=== PATIENT | female | born 1965 | race Caucasian/White ===

== ENCOUNTER 2022-01-19 06:01 | Day surgery (SDC) | payer BC, SELFPAY ==
[2022-01-13 15:08] VITALS: BMI 23.2
--- NOTE | 2022-01-15 12:39 | MHC.SHP ---
Pre-Procedural Eval Section A Date of Service: 01/15/22 The patient is an INPATIENT: No Changes since office visit: No Cold of Flu in the past 2 weeks, No New Medical Problems, No Changes in Medication and No Patient answered all questions The History & Physical has been completed within 30 days and I have reviewed it.: Yes Section B Chief Complaint: cataract right eye Plan Diagnosis/Plan: Unchanged I have reviewed the history and physical and performed a pertinent physical examination on my patient. No changes have occurred unless specified.
--- NOTE | 2022-01-16 08:51 | HO.ANESPROP2 ---
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 [facility] Past Medical History Medical History (Updated 01/13/22 @ 15:27 by Brenda Saldaña, RN) Anxiety Cataract Deaf HTN (hypertension) Hypotension Hypothyroidism Surgical History Surgical History (Updated 01/13/22 @ 14:14 by Brenda Saldaña, RN) Hx of cholecystectomy Hx of hernia repair Social History Social History Are you a primary critical care nurse specialist to a significant other at home: No Do you presently have visiting nurse or other home services: No Patient Tobacco Use Status: Never used Tobacco Use of substances other than those prescribed or required for medical reasons: No Have you been hit, kicked, punched, or otherwise hurt by someone within the past year? If so, by whom?: No Are you DNR?: No Advance Directives: No (will bring DOS) Advance Directives Information Provided: No Advance Directives on File: No Recently lost weight without trying: No Meds Allergies Allergy/AdvReac Type Severity Reaction Status Date / Time interferon beta-1b Allergy Fatigued Verified 01/16/22 08:54 [From Betaseron] lamotrigine [From Lamictal] Allergy suicidal Verified 01/16/22 08:54 naproxen [From Naprosyn] Allergy Gastrointestinal Verified 01/16/22 08:54 Upset Home Medications Medication Instructions Recorded Confirmed Last Taken Type albuterol sulfate 90 mcg/actuation 2 puff PO QID PRN 01/13/22 01/13/22 Unknown History aerosol inhaler hydrochlorothiazide 25 mg tablet 1 tab PO DAILY 01/13/22 01/13/22 Unknown History levothyroxine 75 mcg tablet 1 tab PO DAILY 01/13/22 01/13/22 01/19/22 History olmesartan 20 mg tablet 1 tab PO DAILY 01/13/22 01/13/22 Unknown History Exam Exam Date and Time: January 16, 2022 0851 Height,Weight and Vital Signs: Height 5 ft 2 in Weight 57.606 kg Assessment and Plan Assessment Anesthesia Assessment: Chart Reviewed Documented by User: Pancho Stone MD 01/19/22 07:19 [facility] Past Medical History Medical History (Updated 01/13/22 @ 15:27 by Brenda Saldaña, TAMIKA) Anxiety Cataract Deaf HTN (hypertension) Hypotension Hypothyroidism Family History Family history of problems with anesthesia: No Surgical History Surgical History (Updated 01/13/22 @ 14:14 by Brenda Saldaña, TAMIKA) Hx of cholecystectomy Hx of hernia repair History of Problems with Anesthesia: No Social History Social History Are you a primary critical care nurse specialist to a significant other at home: No Do you presently have visiting nurse or other home services: No Patient Tobacco Use Status: Never used Tobacco Use of substances other than those prescribed or required for medical reasons: No Have you been hit, kicked, punched, or otherwise hurt by someone within the past year? If so, by whom?: No Are you DNR?: No Advance Directives: No (will bring DOS) Advance Directives Information Provided: No Advance Directives on File: No Recently lost weight without trying: No Meds Allergies Allergy/AdvReac Type Severity Reaction Status Date / Time interferon beta-1b Allergy Fatigued Verified 01/16/22 08:54 [From Betaseron] lamotrigine [From Lamictal] Allergy suicidal Verified 01/16/22 08:54 naproxen [From Naprosyn] Allergy Gastrointestinal Verified 01/16/22 08:54 Upset Home Medications Medication Instructions Recorded Confirmed Last Taken Type albuterol sulfate 90 mcg/actuation 2 puff PO QID PRN 01/13/22 01/13/22 Unknown History aerosol inhaler hydrochlorothiazide 25 mg tablet 1 tab PO DAILY 01/13/22 01/13/22 Unknown History levothyroxine 75 mcg tablet 1 tab PO DAILY 01/13/22 01/13/22 01/19/22 History olmesartan 20 mg tablet 1 tab PO DAILY 01/13/22 01/13/22 Unknown History Exam Airway Mallampati Class: II TM Dist: >3cm Neck ROM: Full Loose/Missing/Broken Teeth: No Heart: rrr+s1s2 Lungs: cta b/l Assessment and Plan Assessment Anesthesia Assessment: Anesthesia Plan Discussed Final Anesthetic Review Family History of Problems with Anesthesia: No History of Problems with Anesthesia: No NPO: Yes ASA Class: III Final Preanesthetic Review: No Changes in Pt Med Stat, Meds/Allgs Chart Reviewed, Consent Obtained/Reviewed and Anes Risks/Benef Reviewed Patient Risk: Intermediate Procedure Risk: Low Assessment/Block/Sedation in SS: Assess/Block/Sedation-SS Anesthetic Plan Anesthetic Plan: MAC: and Agree w/ Assess. and Plan Disposition: Standard PACU
[2022-01-19 06:59] VITALS: BP 151/52; PULSE 53; RESP 16; TEMP 36.8; O2SAT 99
[2022-01-19] MEDS: Tetracaine HCl/PF 0.5% Oph Sol 4 ML DROPS 1 DROP EYE-RIGHT (07:15)
[2022-01-19] MEDS: Tropicamide 1 % Ophth Sol 3 ML BTL 1 DROP EYE-RIGHT ×3 (07:16→07:20)
[2022-01-19] MEDS: Phenylephrine HCL 2.5% Oph SoL 2 ML BOTTLE 1 DROP EYE-RIGHT ×3 (07:17→07:23)
[2022-01-19] MEDS: Lactated Ringers 500 ML 50 ML IV (07:24)
--- NOTE | 2022-01-19 07:26 | PC.NURSE ---
DAY CARE HOME PROVIDER WAS SUPPOSED TO BE BOOKED BUT WASNT SO WE USED THE DAY CARE HOME PROVIDER WITH [employer]. THREE INTERPRETERS WERE USED. [employer] [id number]. WHILE DOING THE DROPS THE PATIENT REQUESTED THE [employer] INTEPRETER TO BE ON BY THE BEDSIDE. EUNICE DROPS WELL. TAPPING HER RIGHT SHOULDER.
--- NOTE | 2022-01-19 08:21 | P.PCNO_ITS ---
Ophthalmology Procedure Procedure Date of Service: 01/19/22 Ophthalmology Viscoelastic: Healon Duet Dual Pack Pro Ophthalmology Lenses: TECNIS ZXR00 (13.5) Procedure Notes: PREOPERATIVE DIAGNOSIS: Decreased visual acuity right eye secondary to cataract POSTOPERATIVE DIAGNOSIS: Same PROCEDURE: Right cataract extraction with multifocal intraocular lens insertion SURGEON: Davi Humphries M.D. ANESTHESIA: Topical/MAC ESTIMATED BLOOD LOSS: None COMPLICATIONS: None After obtaining informed consent, the patient was brought to the operating room suite and placed in the supine position. After adequate sedation per anesthesia, topical drops of Tetracaine were given to the right eye. The eye was then prepped and draped in the usual sterile fashion. The operating room microscope was then positioned over the operative eye and a lid speculum placed. A paracentesis was created. Viscoelastic was then instilled into the anterior chamber. A three plane incision was then created temporally, utilizing a 2.85 mm keratome. Capsulotomy forceps were then utilized to create a circular tear capsulotomy. Hydrodissection and hydrodelineation were carried out until adequate mobilization of the nucleus occurred. Phacoemulsification was then utilized to remove the dense central nu cleus followed by removal of the cortical material utilizing the automated aspiration irrigation unit. Viscoelastic was instilled into the posterior capsular bag followed by placement of a multifocal posterior chamber intraocular lens without difficulty. The residual Viscoelastic was then removed utilizing the automated IA machine. The wound was checked and found to be watertight. The patient tolerated the procedure well and the lid speculum was removed. Intracameral injection of Vigamox 0.1 mL followed by a subtenon injection of Kenalog-40 0.2 mL were administered. The patient will be seen in the a.m.
[2022-01-19 08:51] VITALS: PULSE 52; RESP 16; TEMP 36; O2SAT 100
== END 2022-01-19 09:00 | disposition home or self-care (01) ==
PROVIDERS: Visit Provider Ophthalmology
PROC: (CPT 66984; principal; 2022-01-19 08:40)
DX: H25.11 Age-related nuclear cataract, right eye (principal); H54.7 Unspecified visual loss; I10 Essential (primary) hypertension; G35 Multiple sclerosis; E03.9 Hypothyroidism, unspecified; H91.90 Unspecified hearing loss, unspecified ear; Z79.899 Other long term (current) drug therapy; Z88.8 Allergy status to other drugs, medicaments and biological substances
CPT/HCPCS: 66984; J2250; J3300; V2788

== ENCOUNTER 2022-01-26 10:37 | Day surgery (SDC) | payer BC, SELFPAY ==
[2022-01-13 15:23] VITALS: BMI 23.2
--- NOTE | 2022-01-23 10:13 | HO.ANESPROP2 ---
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* [facility] Past Medical History Medical History Anxiety Cataract Deaf HTN (hypertension) Hypotension Hypothyroidism Family History Family history of problems with anesthesia: No Surgical History Surgical History Hx of cholecystectomy Hx of hernia repair History of Problems with Anesthesia: No Social History Social History Are you a primary rehab care assistant to a significant other at home: No Do you presently have visiting nurse or other home services: No Patient Tobacco Use Status: Never used Tobacco Use of substances other than those prescribed or required for medical reasons: No Have you been hit, kicked, punched, or otherwise hurt by someone within the past year? If so, by whom?: No Are you DNR?: No Advance Directives: No Advance Directives Information Provided: No Advance Directives on File: No Meds Allergies Allergy/AdvReac Type Severity Reaction Status Date / Time interferon beta-1b Allergy Fatigued Verified 01/26/22 11:32 [From Betaseron] lamotrigine [From Lamictal] Allergy suicidal Verified 01/26/22 11:32 naproxen [From Naprosyn] Allergy Gastrointestinal Verified 01/26/22 11:32 Upset Home Medications Medication Instructions Recorded Confirmed Last Taken Type albuterol sulfate 90 mcg/actuation 2 puff PO QID PRN 01/13/22 01/13/22 Unknown History aerosol inhaler hydrochlorothiazide 25 mg tablet 1 tab PO DAILY 01/13/22 01/13/22 Unknown History levothyroxine 75 mcg tablet 1 tab PO DAILY 01/13/22 01/13/22 01/26/22 02:30 History olmesartan 20 mg tablet 1 tab PO DAILY 01/13/22 01/13/22 Unknown History Exam Exam Date and Time: January 23, 2022 1013 Height,Weight and Vital Signs: Height 5 ft 2 in Weight 57.606 kg Assessment and Plan Assessment Anesthesia Assessment: Chart Reviewed Final Anesthetic Review Family History of Problems with Anesthesia: No History of Problems with Anesthesia: No Documented by User: Pancho Stone MD 01/26/22 12:01 [facility] Past Medical History Medical History Anxiety Cataract Deaf HTN (hypertension) Hypotension Hypothyroidism Surgical History Surgical History Hx of cholecystectomy Hx of hernia repair Social History Social History Are you a primary rehab care assistant to a significant other at home: No Do you presently have visiting nurse or other home services: No Patient Tobacco Use Status: Never used Tobacco Use of substances other than those prescribed or required for medical reasons: No Have you been hit, kicked, punched, or otherwise hurt by someone within the past year? If so, by whom?: No Are you DNR?: No Advance Directives: No Advance Directives Information Provided: No Advance Directives on File: No Meds Allergies Allergy/AdvReac Type Severity Reaction Status Date / Time interferon beta-1b Allergy Fatigued Verified 01/26/22 11:32 [From Betaseron] lamotrigine [From Lamictal] Allergy suicidal Verified 01/26/22 11:32 naproxen [From Naprosyn] Allergy Gastrointestinal Verified 01/26/22 11:32 Upset Home Medications Medication Instructions Recorded Confirmed Last Taken Type albuterol sulfate 90 mcg/actuation 2 puff PO QID PRN 01/13/22 01/13/22 Unknown History aerosol inhaler hydrochlorothiazide 25 mg tablet 1 tab PO DAILY 01/13/22 01/13/22 Unknown History levothyroxine 75 mcg tablet 1 tab PO DAILY 01/13/22 01/13/22 01/26/22 02:30 History olmesartan 20 mg tablet 1 tab PO DAILY 01/13/22 01/13/22 Unknown History Exam Airway Mallampati Class: II TM Dist: >3cm Neck ROM: Full Loose/Missing/Broken Teeth: No Heart: rrr +s1s2 Lungs: cta b/l Assessment and Plan Assessment Anesthesia Assessment: Anesthesia Plan Discussed and Chart Reviewed Final Anesthetic Review NPO: Yes ASA Class: II Final Preanesthetic Review: No Changes in Pt Med Stat, Meds/Allgs Chart Reviewed, Consent Obtained/Reviewed and Anes Risks/Benef Reviewed Patient Risk: Low Procedure Risk: Low Assessment/Block/Sedation in SS: Assess/Block/Sedation-SS Anesthetic Plan Anesthetic Plan: MAC: and Agree w/ Assess. and Plan Disposition: Standard PACU
--- NOTE | 2022-01-23 14:43 | MHC.SHP ---
Pre-Procedural Eval Section A Date of Service: 01/23/22 The patient is an INPATIENT: No Changes since office visit: No Cold of Flu in the past 2 weeks, No New Medical Problems, No Changes in Medication and No Patient answered all questions The History & Physical has been completed within 30 days and I have reviewed it.: Yes Section B Chief Complaint: cataract left eye Allergies: Allergies Allergy/AdvReac Type Severity Reaction Status Date / Time interferon beta-1b Allergy Fatigued Verified 01/16/22 08:54 [From Betaseron] lamotrigine [From Lamictal] Allergy suicidal Verified 01/16/22 08:54 naproxen [From Naprosyn] Allergy Gastrointestinal Verified 01/16/22 08:54 Upset Plan Diagnosis/Plan: Unchanged I have reviewed the history and physical and performed a pertinent physical examination on my patient. No changes have occurred unless specified.
[2022-01-26 11:34] VITALS: BP 154/58; PULSE 54; RESP 16; TEMP 36.3; O2SAT 99
[2022-01-26] MEDS: Tetracaine HCl/PF 0.5% Oph Sol 4 ML DROPS 1 DROP EYE-LEFT (11:48)
[2022-01-26] MEDS: Tropicamide 1 % Ophth Sol 3 ML BTL 1 DROP EYE-LEFT ×3 (11:50→12:02)
[2022-01-26] MEDS: Phenylephrine HCL 2.5% Oph SoL 2 ML BOTTLE 1 DROP EYE-LEFT ×3 (11:54→12:04)
[2022-01-26] MEDS: Lactated Ringers 500 ML 50 ML IV (12:01)
--- NOTE | 2022-01-26 12:53 | HO.PNOPHT ---
Ophthalmology Procedure Procedure Date of Service: 01/26/22 Ophthalmology Viscoelastic: Healon Duet Dual Pack Pro Ophthalmology Lenses: TECNIS [id number] (13) Procedure Notes: PREOPERATIVE DIAGNOSIS: Decreased visual acuity left eye secondary to cataract POSTOPERATIVE DIAGNOSIS: Same PROCEDURE: Left cataract extraction with toric multifocal intraocular lens insertion axis 64 degrees SURGEON: Davi Humphries M.D. ANESTHESIA: Topical/MAC ESTIMATED BLOOD LOSS: None COMPLICATIONS: None After obtaining informed consent, the patient was brought to the operation room suite and placed in the supine position. After adequate sedation per anesthesia, topical drops of Tetracaine were given to the left eye. The eye was then prepped and draped in the usual sterile fashion. The operating room microscope was then positioned over the operative eye and a lid speculum placed. A paracentesis was created. Viscoelastic was then instilled into the anterior chamber. A three plane incision was then created temporally, utilizing a 2.85 mm keratome. Capsulotomy forceps were then utilized to create a circular tear capsulotomy. Hydrodissection and hydrodelineation were carried out until adequate mobilization of the nucleus occurred. Phacoemulsification was then utilized to remove the dense central nucleus followed by removal of the cortical material utilizing the automated aspiration irrigation unit. Viscoelastic was instilled into the posterior capsular bag followed by placement of a toric multifocal posterior chamber intraocular lens axis 64 degrees without difficulty. The residual Viscoelastic was then removed utilizing the automated IA machine. The wound was check and found to be watertight. The patient tolerated the procedure well and the lid speculum was removed. Intracameral injection of Vigamox 0.1 mL followed by a subtenon injection of Kenalog-40 0.2 mL were administered. The patient will be seen in the a.m.
[2022-01-26 13:25] VITALS: BP 152/61; PULSE 67; RESP 18; TEMP 36.3
== END 2022-01-26 13:51 | disposition home or self-care (01) ==
PROVIDERS: Visit Provider Ophthalmology
PROC: (CPT 66984; principal; 2022-01-26 13:20)
DX: H25.12 Age-related nuclear cataract, left eye (principal); H54.7 Unspecified visual loss; H91.90 Unspecified hearing loss, unspecified ear; E03.9 Hypothyroidism, unspecified; I10 Essential (primary) hypertension; E55.9 Vitamin D deficiency, unspecified; G62.9 Polyneuropathy, unspecified; G35 Multiple sclerosis; F41.9 Anxiety disorder, unspecified; Z79.899 Other long term (current) drug therapy; Z88.8 Allergy status to other drugs, medicaments and biological substances
CPT/HCPCS: 66984; J2250; J3010; J3300; V2788

== ENCOUNTER → 2023-01-20 09:29 | Outpatient (BNVA) | payer BC, SELFPAY | PROVIDERS: PCP Family Medicine; Visit Provider Anesthesiology | DX: Z13.89 Encounter for screening for other disorder (principal) ==